=== PATIENT | female | born 1955 | race Caucasian/White ===

== ENCOUNTER 2017-06-01 08:00 | Outpatient (CLI) | payer OTHER | END 2017-06-01 08:01 | disposition home or self-care (01) | LOC: BICMAMMO 08:00 | PROVIDERS: ATTEND Internal Medicine Medical Oncology | DX: Z13.820 Encounter for screening for osteoporosis (principal); M81.0 Age-related osteoporosis without current pathological fracture | CPT/HCPCS: 77080 ==

== ENCOUNTER 2017-07-04 15:34 | Outpatient (CLI) | payer OTHER | END 2017-07-04 15:35 | disposition home or self-care (01) | LOC: BICMAMMO 15:34 | PROVIDERS: ATTEND Internal Medicine | DX: N63.10 Unspecified lump in the right breast, unspecified quadrant (principal); N64.4 Mastodynia; Z80.3 Family history of malignant neoplasm of breast; Z85.3 Personal history of malignant neoplasm of breast | CPT/HCPCS: 77066; G0279 ==

== ENCOUNTER → 2017-07-14 | Day surgery (SDC) | payer OTHER | LOC: BICULT 14:53 | PROVIDERS: ATTEND Surgery | PROC: 0HBT3ZX Excision of Right Breast, Percutaneous Approach, Diagnostic (ICD-10-PCS; principal; 2017-07-14) | DX: N60.41 Mammary duct ectasia of right breast (principal); N60.31 Fibrosclerosis of right breast; N64.59 Other signs and symptoms in breast | CPT/HCPCS: 19083; 88305; 89060 ==

== ENCOUNTER 2017-08-03 10:00 | Outpatient (CLI) | payer OTHER ==
[2017-08-03 11:40] LABS: #Basophils 0.1 thou/uL (0.0-0.2); #Eosinphils 0.3 thou/uL (0.0-0.7); #Lymphocytes 2.2 thou/uL (1.20-3.40); #Monocytes 0.5 thou/uL (0.11-0.59); #Neutrophils 3.9 thou/uL (1.40-6.50); %Basophils 0.9 % (0.0-1.0); %Eosinophils 3.9 % (0.0-10.0); %Lymphocytes 31.2 % (21.0-51.0); %Monocytes 7.5 % (0.0-10.0); %Neutrophils 56.5 % (42.0-75.0); Hemoglobin 13.1 g/dL (12.0-16.0); Mean Corpuscular Hemoglobin 32.5 pg (27.0-31.0); Mean Corpuscular Volume 98.4 fl (81.0-99.0); Mean Platelet Volume 6.3 fL (7.4-10.4); Platelet Count 236 thou/uL (130-400); RBC Distribution Width 11.6 % (11.5-14.5); Red Blood Cell (RBC) Count 4.04 mill/uL (4.20-5.40)
[2017-08-03 12:24] LABS: ALT (SGPT) 28 U/L (8-55); AST (SGOT) 27 U/L (5-34); Albumin 4.3 g/dL (3.4-4.8); Alkaline Phosphatase 70 U/L (40-150); Anion Gap 14 mmol/L (10-20); BUN (Urea Nitrogen) 12 mg/dL (9.8-20.1); Bilirubin, Total 0.2 mg/dL (0.2-1.2); Calc. Creatinine Clearance 0 mL/min (70-130); Calcium 9.2 mg/dL (7.8-10.44); Carbon Dioxide 24 mmol/L (23-31); Chloride 106 mmol/L (98-107); Estimated GFR-MDRD 90; Globulin 2.7 g/dL (2.4-3.5); Glucose 128 mg/dL (80-115); Potassium 4.6 mmol/L (3.5-5.1); Sodium 139 mmol/L (136-145)
--- NOTE | 2017-08-03 16:51 | EKG ---
Test Reason : Blood Pressure : / mmHG Vent. Rate : 080 BPM Atrial Rate : 080 BPM P-R Int : 156 ms QRS Dur : 082 ms QT Int : 380 ms P-R-T Axes : 071 048 042 degrees QTc Int : 438 ms Normal sinus rhythm Cannot rule out Anterior infarct , age undetermined Abnormal ECG No previous ECGs available Confirmed by DR. Samantha PACE ([id number]) on 08/03/2017 4:50:49 PM Referred By: BRAD Confirmed By:DR. Samantha PACE
== END 2017-08-03 10:01 | disposition home or self-care (01) ==
LOC: LABBT 10:00
PROVIDERS: ATTEND Surgery
DX: Z01.818 Encounter for other preprocedural examination (principal); N63.10 Unspecified lump in the right breast, unspecified quadrant
CPT/HCPCS: 80053; 85025; 93005; 93010

== ENCOUNTER 2017-08-04 06:47 | Day surgery (SDC) | payer OTHER ==
[2017-08-03 10:36] VITALS: BMI 26.0
[2017-08-04] MEDS ORDERED: Dexamethasone 20 MG/5 ML VIAL ONE (08:55)
[2017-08-04] MEDS ORDERED: ePHEDrine/0.9% NaCl/PF SYRINGE 50 mg/10 ml ONE (08:55)
[2017-08-04] MEDS ORDERED: Propofol 200 MG/20 ML VIAL ONE (08:55)
[2017-08-04] MEDS ORDERED: Ketorolac Tromethamine 30 MG/ML VIAL ONE (08:55)
[2017-08-04] MEDS ORDERED: Ondansetron HCl/PF 4 MG/2 ML Vial ONE ×3 (08:55→13:25)
[2017-08-04] MEDS ORDERED: Lidocaine 1% PF 5 ML VIAL ONE (08:55)
[2017-08-04] MEDS ORDERED: CEFAZOLIN/Water 2 GM/20 ML SYRINGE ONE (09:28)
[2017-08-04] MEDS ORDERED: Bupivacaine HCl 0.5%/Epinephrine 1:200,000/PF 30 ml Vial ONE (13:21)
[2017-08-04] MEDS ORDERED: Fentanyl 250 MCG/5 ML VIAL ONE (13:25)
[2017-08-04] MEDS ORDERED: Famotidine/PF 20 mg/2ml Vial ONE (13:25)
--- NOTE | 2017-08-04 15:22 | MMO ---
SPECIMEN RADIOGRAPH: Date: 08/04/17 HISTORY: Status post excisional biopsy, evaluate for the localized post biopsy clip. FINDINGS: A specimen radiograph following excisional biopsy is provided. The localization needle and wire, as w ell as the post biopsy clip, are present within the central aspect of the specimen. IMPRESSION: Localized post biopsy clip is present within the surgical specimen. POS: [facility]
--- NOTE | 2017-08-04 15:25 | MMO ---
NEEDLE LOCALIZATION OF RIGHT BREAST CLIP: Date: 08/04/17 HISTORY: 62-year-old female status post ultrasound guided biopsy and clip placement. Presurgical localization of post biopsy clip for excision requested. FINDINGS: Informed consent was obtained prior to the procedure. The patient was placed in CC compression on the right and the post biopsy clip was localized. Skin ov erlying the superolateral aspect of the right breast was prepped and draped in the normal sterile fas hion and anesthetized with 1% buffered lidocaine. A 5 cm [place] needle was advanced into the right kendy ast from a superior approach and CC imaging confirms the needle to be directly adjacent to the clip. LM imaging is provided, demonstrating the clip to be immediately adjacent to the distal aspect of the needle. The wire was advanced and locked in place. The patient tolerated the procedure well. IMPRESSION: Successful needle localization of right breast post biopsy clip prior to excisional biopsy. POS: [facility]
--- NOTE | 2017-08-05 00:52 | OP ---
PREOPERATIVE DIAGNOSIS: Microcalcifications of the right breast. SURGEON: Artis Black M.D. PROCEDURE PERFORMED: Right needle localization lumpectomy. INDICATIONS: A 62-year-old female with a previous history of breast cancer who developed new microca lcifications in the upper outer right breast. She underwent core needle biopsy that was benign. How ever, she reported that the last time she had cancer, they did the same thing and said it was benign, it turned out to be cancer, so she wanted to have it out. FINDINGS: Successful removal of the clip. DESCRIPTION OF PROCEDURE: After informed consent was obtained, the patient was taken to the operatin g room, given general mask anesthesia, placed in the supine position. Her right breast was prepped a nd draped in usual fashion. She has undergone placement of the needle and mammography. The breast w as prepped and draped in usual fashion. Local anesthesia infiltrated subcutaneously and deep curvili near incision was performed. A core of breast tissue was excised around the needle and marked with t he needle anterior, blue superior, black lateral, and sent to mammography. The subcu was reapproxima reyes with interrupted 3-0 Vicryl. Skin closed with a running subcuticular 4-0 Rapide. Steri-Strips a pplied. Sterile bandage applied. The patient tolerated the procedure well and was transferred [facility] in good condition. Sponge and needle count verified correct x2.
== END 2017-08-04 16:20 | disposition home or self-care (01) ==
LOC: SDC 06:47
PROVIDERS: ATTEND Surgery
PROC: 0HBT0ZZ Excision of Right Breast, Open Approach (ICD-10-PCS; principal; 2017-08-04)
DX: R92.0 Mammographic microcalcification found on diagnostic imaging of breast (principal); E11.9 Type 2 diabetes mellitus without complications; H40.9 Unspecified glaucoma; M81.0 Age-related osteoporosis without current pathological fracture; J30.2 Other seasonal allergic rhinitis; F32.9 Major depressive disorder, single episode, unspecified; Z79.84 Long term (current) use of oral hypoglycemic drugs; Z79.82 Long term (current) use of aspirin; Z79.899 Other long term (current) drug therapy; Z88.2 Allergy status to sulfonamides; Z98.890 Other specified postprocedural states; Z85.3 Personal history of malignant neoplasm of breast
CPT/HCPCS: 19281; 76098; 88307; J0131; J0670; J1100; J1885; J2001; J2405; J2704; J3010; S0028

== ENCOUNTER 2018-08-23 14:54 | Outpatient (CLI) | payer OTHER ==
--- NOTE | 2018-08-27 13:26 | MMO ---
Bilateral MAMMO Bilat Screen [facility]. CLINICAL HISTORY: Patient is 63 years old and is seen for screening. The patient has the following family history of breast cancer: 4 paternal aunts; cousin female; 2 maternal aunts and mother, at age 52. The patient has a history of malignant (generic) in the left breast at age 44. The patient has a history of right Ultrasound Guided Core Biopsy in July,, left Ultrasound Guided Core Biopsy in 2011 - benign and left Lumpectomy at age 43 - malignant. VIEWS: The views performed were: bilateral craniocaudal with tomosynthesis and bilateral mediolateral oblique with tomosynthesis. FILMS COMPARED: The present examination has been compared to prior imaging studies performed at [facility] on 11/30/2012, 12/02/2013 and 07/04/2017, at [facility] on 11/30/2011, and at [facility] on 01/19/2015, 01/22/2016, 01/29/2016 and 04/22/2016. MAMMOGRAM FINDINGS: The breasts are heterogeneously dense, which could obscure a lesion on mammography. Finding 1: There are stable benign appearing calcifications seen in both breasts. Finding 2: There are post operative changes seen in both breasts. There are no suspicious masses, suspicious calcifications, or new areas of architectural distortion. IMPRESSION: THERE IS NO MAMMOGRAPHIC EVIDENCE OF MALIGNANCY. A ROUTINE FOLLOW-UP MAMMOGRAM IN 1 YEAR IS RECOMMENDED. THE RESULTS OF THIS EXAM WERE SENT TO THE PATIENT. ACR BI-RADS Category 2 - Benign finding MAMMOGRAPHY NOTE: 1. A negative mammogram report should not delay a biopsy if a dominant of clinically suspicious mass is present. 2. Approximately 10% to 15% of breast cancers are not detected by mammography. 3. Adenosis and dense breasts may obscure an underlying neoplasm.
== END 2018-08-23 14:55 | disposition home or self-care (01) ==
LOC: BICMAMMO 14:54
PROVIDERS: ATTEND Internal Medicine Medical Oncology
DX: Z12.31 Encounter for screening mammogram for malignant neoplasm of breast (principal); Z80.3 Family history of malignant neoplasm of breast; Z85.3 Personal history of malignant neoplasm of breast
CPT/HCPCS: 77063; 77067

== ENCOUNTER 2019-06-07 08:11 | Outpatient (CLI) | payer MEDICARE, OTHER ==
--- NOTE | 2019-06-07 09:45 | BD ---
DEXA BONE MINERAL DENSITY STUDY: HISTORY: Osteoporosis. Postmenopausal female. COMPARISON: None. FINDINGS: LUMBAR SPINE BMD (g/cm2) T-SCORE Z-SCORE L1 0.846 -1.3 0.3 L2 0.869 -1.4 0.3 L3 0.902 -1.7 0.2 L4 0.913 -1.3 0.6 TOTAL 0.885 -1.5 0.3 HIP BMD (g/cm2) T-SCORE Z-SCORE LEFT FEMORAL NECK 0.537 -2.8 -1.3 TOTAL 0.778 -1.3 -0.1 WHO CLASSIFICATION: Osteoporosis. POS: [facility]
== END 2019-06-07 08:12 | disposition home or self-care (01) ==
LOC: BICMAMMO 08:11
PROVIDERS: ATTEND Internal Medicine
DX: M81.0 Age-related osteoporosis without current pathological fracture (principal); M85.88 Other specified disorders of bone density and structure, other site
CPT/HCPCS: 77080

== ENCOUNTER 2019-09-27 08:46 | Outpatient (CLI) | payer MEDICARE, OTHER ==
--- NOTE | 2019-09-27 09:21 | MMO ---
Bilateral MAMMO Bilat Screen [facility]. CLINICAL HISTORY: Patient is 64 years old and is seen for screening. The patient has the following family history of breast cancer: 4 paternal aunts; cousin female; 2 maternal aunts and mother, at age 52. The patient has a history of malignant (generic) in the left breast at age 44. The patient has a history of right Ultrasound Guided Core Biopsy in July,, left Ultrasound Guided Core Biopsy in 2011 - benign and left Lumpectomy at age 43 - malignant. VIEWS: The views performed were: bilateral craniocaudal with tomosynthesis; bilateral mediolateral oblique with tomosynthesis; and left exaggerated craniocaudal. FILMS COMPARED: The present examination has been compared to prior imaging studies performed at [facility] on 07/04/2017 and 08/23/2018, and at [facility] on 04/22/2016. This study has been interpreted with the assistance of computer-aided detection. MAMMOGRAM FINDINGS: The breasts are heterogeneously dense, which could obscure a lesion on mammography. Finding 1: There are stable benign appearing calcifications seen in both breasts. Finding 2: There are stable post operative changes seen in both breasts. There are no suspicious masses, suspicious calcifications, or new areas of architectural distortion. IMPRESSION: THERE IS NO MAMMOGRAPHIC EVIDENCE OF MALIGNANCY. A ROUTINE FOLLOW-UP MAMMOGRAM IN 1 YEAR IS RECOMMENDED. THE RESULTS OF THIS EXAM WERE SENT TO THE PATIENT. ACR BI-RADS Category 2 - Benign finding MAMMOGRAPHY NOTE: 1. A negative mammogram report should not delay a biopsy if a dominant of clinically suspicious mass is present. 2. Approximately 10% to 15% of breast cancers are not detected by mammography. 3. Adenosis and dense breasts may obscure an underlying neoplasm. Reported by: LORI HERRMANN MD Electonically Signed: [id number]
== END 2019-09-27 08:47 | disposition home or self-care (01) ==
LOC: BICMAMMO 08:46
PROVIDERS: ATTEND Internal Medicine Medical Oncology
DX: Z12.31 Encounter for screening mammogram for malignant neoplasm of breast (principal); Z80.3 Family history of malignant neoplasm of breast; Z85.3 Personal history of malignant neoplasm of breast; Z91.89 Other specified personal risk factors, not elsewhere classified; Z98.890 Other specified postprocedural states
CPT/HCPCS: 77063; 77067

== ENCOUNTER 2020-06-09 13:51 | Outpatient (CLI) | payer MEDICARE, OTHER ==
--- NOTE | 2020-06-09 14:40 | BD ---
EXAM: Bone densitometry using DEXA HISTORY: 65 yo female. Screening for postmenopausal osteoporosis FINDINGS: L1--bone mineral density 0.899 g/sq cm; T score -0.8 ; Z score 0.8 L2--bone mineral density 0.863 g/sq cm; T score -1.5 ; Z score 0.3 L3--bone mineral density 0.914 g/sq cm; T score -1.5 ; Z score 0.4 L4--bone mineral density 0.955 g/sq cm; T score -1.0 ; Z score 1.0 Total L1-L4--bone mineral density 0.910 g/sq cm; T score -1.2 ; Z score 0.6 Left femoral neck--bone mineral density0.534; T score -2.8 ; Z score -1.3 Total proximal left femur--bone mineral density 0.802; T score -1.2 ; Z score 0.1 There has been an interval increase of 2.8% in the BMD of the lumbar spine and a increase of 3% in the BMD of the proximal femur since the previous study of 06/07/2019. IMPRESSION: Osteoporosis
== END 2020-06-09 13:52 | disposition home or self-care (01) ==
LOC: BICMAMMO 13:51
PROVIDERS: ATTEND Internal Medicine Hematology & Oncology
DX: N95.8 Other specified menopausal and perimenopausal disorders (principal); M81.0 Age-related osteoporosis without current pathological fracture; M85.88 Other specified disorders of bone density and structure, other site
CPT/HCPCS: 77080

== ENCOUNTER 2021-11-04 15:40 | Emergency (ER) | payer OTHER, MEDICARE ==
[~2021-11-04 15:40] MED LIST: Iopamidol 370 76% 100 ML VIAL ONE
[2021-11-04 16:05] LABS: #Basophils 0.1 thou/uL (0.0-0.2); #Eosinphils 0.2 thou/uL (0.0-0.7); #Lymphocytes 3.1 thou/uL (1.20-3.40); #Monocytes 0.7 thou/uL (0.11-0.59); #Neutrophils 5.7 thou/uL (1.40-6.50); %Basophils 0.6 % (0.0-1.0); %Eosinophils 2.5 % (0.0-10.0); %Lymphocytes 31.6 % (21.0-51.0); %Monocytes 7.2 % (0.0-10.0); %Neutrophils 58.1 % (42.0-75.0); Hemoglobin 12.1 g/dL (12.0-16.0); Mean Corpuscular HGB CONC 34.1 g/dL (32.0-36.0); Mean Corpuscular Hemoglobin 32.8 pg (27.0-31.0); Mean Corpuscular Volume 96.3 fL (78.0-98.0); Mean Platelet Volume 5.9 fL (7.4-10.4); Platelet Count 283 thou/uL (130-400); RBC Distribution Width 11.7 % (11.5-14.5); Red Blood Cell (RBC) Count 3.67 mill/uL (4.20-5.40); White Blood Cell (WBC) Count 9.8 thou/uL (4.8-10.8)
[2021-11-04 16:27] LABS: ALT (SGPT) 50 U/L (8-55); AST (SGOT) 61 U/L (5-34); Albumin 4.2 g/dL (3.4-4.8); Alkaline Phosphatase 81 U/L (40-110); Anion Gap 15 mmol/L (10-20); BUN (Urea Nitrogen) 13 mg/dL (9.8-20.1); Bilirubin, Total 0.3 mg/dL (0.2-1.2); Calc. Creatinine Clearance 0 mL/min (70-130); Calcium 9.3 mg/dL (7.8-10.44); Carbon Dioxide 25 mmol/L (23-31); Chloride 102 mmol/L (98-107); Globulin 3.3 g/dL (2.4-3.5); Glucose 205 mg/dL (80-115); Potassium 4.3 mmol/L (3.5-5.1); Protein, Total 7.5 g/dL (5.8-8.1); Sodium 138 mmol/L (136-145)
[2021-11-04] MEDS ORDERED: Ketorolac Tromethamine 30 MG/ML VIAL ONE (16:50)
[2021-11-04] MEDS ORDERED: Morphine 4 MG/ML VIAL ONE (16:50)
== END 2021-11-04 18:11 | disposition home or self-care (01) ==
LOC: ERS 15:40
DX: S52.691A Other fracture of lower end of right ulna, initial encounter for closed fracture (principal); S00.03XA Contusion of scalp, initial encounter; V89.2XXA Person injured in unspecified motor-vehicle accident, traffic, initial encounter; W22.10XA Striking against or struck by unspecified automobile airbag, initial encounter
CPT/HCPCS: 29125; 36415; 70450; 71045; 71260; 72125; 74177; 80053; 85025; 96372; G0390; J1885; J2270; Q9967

== ENCOUNTER 2021-11-08 09:36 | Outpatient (CLI) | payer MEDICARE, OTHER | END 2021-11-08 09:37 | disposition home or self-care (01) | LOC: LABBT 09:36 | PROVIDERS: ATTEND Orthopaedic Surgery | DX: Z01.818 Encounter for other preprocedural examination (principal); S52.601A Unspecified fracture of lower end of right ulna, initial encounter for closed fracture; Z20.822 Contact with and (suspected) exposure to COVID-19 | CPT/HCPCS: 93005; U0003; U0005; 93010 ==

== ENCOUNTER 2021-11-09 10:42 | Day surgery (SDC) | payer OTHER, MEDICARE ==
[2021-11-08 14:45] VITALS: BMI 26.0
[2021-11-09] MEDS ORDERED: Fentanyl 100 MCG/2 ML VIAL ONE (11:12)
[2021-11-09] MEDS ORDERED: Midazolam HCl 2 mg/2 ml Vial ONE (11:12)
[2021-11-09] MEDS ORDERED: fentaNYL Citrate/PF 100 MCG/2 ML SYRINGE ONE (12:39)
[2021-11-09] MEDS ORDERED: CEFAZOLIN 2 GM VIAL ONE (12:56)
[2021-11-09] MEDS ORDERED: Sodium Chloride 0.9% 100 ML ONE (12:56)
[2021-11-09] MEDS ORDERED: Fentanyl 100 MCG/2 ML VIAL IV PRN (13:10)
[2021-11-09] MEDS ORDERED: Lidocaine 1% PF 5 ML VIAL ONE (13:14)
[2021-11-09] MEDS ORDERED: PROPOFOL 200 MG/20 ML VIAL ONE (13:14)
[2021-11-09] MEDS ORDERED: Ropivacaine 0.5% HCl/PF (150 MG/30 ML VIAL) ONE (13:14)
[2021-11-09] MEDS ORDERED: Ondansetron PF 4 MG/2 ML Vial ONE (13:14)
[2021-11-09] MEDS ORDERED: PHENYLEPHRINE-NS 100 MCG/ML 10 ML SYRINGE ONE (13:14)
[2021-11-09] MEDS ORDERED: Ketorolac Tromethamine 30 MG/ML VIAL ONE (13:14)
[2021-11-09] MEDS ORDERED: HYDROcodone/Acetaminophen 10/325 mg Tablet PO PRN ×2 (13:15)
[2021-11-09] MEDS ORDERED: Zolpidem Tartrate 5 MG TAB PO PRN (13:15)
[2021-11-09] MEDS ORDERED: traMADol HCl 50 MG TAB PO PRN ×2 (13:15)
[2021-11-09] MEDS ORDERED: Ondansetron PF 4 MG/2 ML Vial IVP PRN (13:15)
[2021-11-09] MEDS ORDERED: Ropivacaine 0.2% 550 ML 550 ML NERVE BLCK SCH (13:15)
[2021-11-09] MEDS ORDERED: Promethazine HCl 25 MG/ML VIAL IM PRN ×2 (13:15→14:39)
[2021-11-09] MEDS ORDERED: Ondansetron HCl/PF 4 MG/2 ML Vial IVP PRN (14:39)
[2021-11-09] MEDS ORDERED: Promethazine HCl 25 MG/ML VIAL IVPB PRN (14:39)
== END 2021-11-09 16:23 | disposition home or self-care (01) ==
LOC: SDC 10:42
PROVIDERS: ATTEND Orthopaedic Surgery
PROC: 0PSK04Z Reposition Right Ulna with Internal Fixation Device, Open Approach (ICD-10-PCS; principal; 2021-11-09)
PROC: 3E0T3BZ Introduction of Anesthetic Agent into Peripheral Nerves and Plexi, Percutaneous Approach (ICD-10-PCS; 2021-11-09)
DX: S52.691A Other fracture of lower end of right ulna, initial encounter for closed fracture (principal); E11.9 Type 2 diabetes mellitus without complications; E78.5 Hyperlipidemia, unspecified; M81.0 Age-related osteoporosis without current pathological fracture; Z85.3 Personal history of malignant neoplasm of breast; Z87.891 Personal history of nicotine dependence; Z79.84 Long term (current) use of oral hypoglycemic drugs; Z79.899 Other long term (current) drug therapy; Z88.2 Allergy status to sulfonamides; V49.9XXA Car occupant (driver) (passenger) injured in unspecified traffic accident, initial encounter
CPT/HCPCS: 25545; 64416; 73100; 76000; A4306; C1713 ×2; J1885; J2250; J2405; J2704; J2795; J3010; J3490

== ENCOUNTER 2021-12-27 18:31 | Outpatient (CLI) | payer MEDICARE, OTHER | END 2021-12-27 18:32 | disposition home or self-care (01) | LOC: SCSRAD 18:31 | PROVIDERS: ATTEND Student in an Organized Health Care Education/Training Program | DX: M54.50 Low back pain, unspecified (principal) | CPT/HCPCS: 72220 ==